=== PATIENT | female | born 1960 | race Caucasian/White ===

== ENCOUNTER 2019-02-22 17:50 | Inpatient (IN) | payer BC ==
[~2019-02-22] VITALS: Ht 162.6 cm; Wt 106.0 kg
[2019-02-22] MEDS ORDERED: DILTIAZEM HCL 25 MG/5 ML VIAL IV ONE ×3 (18:00→18:45)
[2019-02-22 18:33] LABS: Basophils # (auto) 0.1 uL; Basophils % (auto) 0.8 % (0.0-2.0); Eosinophils # (auto) 0.2 uL; Eosinophils % (auto) 2.1 % (0.0-7.0); Hematocrit 42.7 % (36.0-46.0); Hemoglobin 14.8 g/dL (12.2-16.2); Lymphocytes # (auto) 1.3 uL; Lymphocytes % (auto) 16.9 % (10.0-50.0); Mean Corpuscular Hemoglobin 31.4 pg (28.0-32.0); Mean Corpuscular Hgb Conc. 34.6 g/dL (32.0-36.0); Mean Corpuscular Volume 90.7 fL (80.0-100.0); Monocytes # (auto) 0.5 uL; Monocytes % (auto) 7.2 % (0.0-12.0); Neutrophils # (auto) 5.6 uL; Platelet Count (auto) 193 10^3/uL (140-450); Red Blood Cells 4.71 10^6/uL (4.0-5.20); Red Cell Distribution Width 12.9 % (11.8-14.3); White Blood Cell 7.7 10^3/uL (4.4-10.8)
[2019-02-22 18:47] LABS: INR < 0.93 (0.9-1.15); Partial Thromboplastin Time 25.6 sec (23.64-32.05)
[2019-02-22 18:54] LABS: Alanine Aminotransferase 44 U/L (13-56); Albumin 4.1 g/dL (3.4-5.0); Anion Gap 8 (5-15); Blood Urea Nitrogen 28 mg/dL (7-18); Calcium 8.8 mg/dL (8.5-10.1); Carbon Dioxide 23 mmol/L (21-32); Chloride 114 mmol/L (98-107); Glucose 145 mg/dL (74-106); Magnesium 2.2 mg/dL (1.6-2.6); Potassium 3.5 mmol/L (3.5-5.1); Sodium 145 mmol/L (136-145)
[2019-02-22 18:59] LABS: Alkaline Phosphatase 79 U/L (45-117); Aspartate Aminotransferase 42 U/L (15-37); BUN/Creatinine Ratio 29.8; Bilirubin, Total 0.4 mg/dL (0.2-1.0); GFR African American 79 mL/min; GFR Non-African American 65 mL/min; Total Protein 7.5 g/dL (6.4-8.2)
[2019-02-22 21:01] LABS: Urine Bacteria NONE SEEN /hpf (None Seen); Urine Blood 2+ /uL (Negative); Urine WBC 2 /hpf (0 - 5)
[2019-02-23] MEDS ORDERED: traMADol HCL 50 MG TAB PO PRN
[2019-02-23] MEDS ORDERED: ONDANSETRON HCL 4 MG/2 ML VIAL IV PRN
[2019-02-23] MEDS: TEMAZEPAM 15 MG CAP PO PRN ×2 (01:30→21:42)
--- NOTE | 2019-02-23 03:01 | NUR ---
Telemetry admit from ER CALDWELL,KAREN admitted to Telemetry unit; no SBAR received. Patient oriented by BENEDICTO DURAN, primary RN, to unit, room, bed, and unit policies regarding patient care and visiting hours. Patient now on continuous telemetry monitoring, tele box #[id number] and telemetry reading on arrival to unit is SR in 70s. Patient on room air, weighed by bedscale and encouraged to call if she needs something. All questions and concerns addressed, patient verbalized understanding. Bed in low position; HOB in semi-Schilling's. Call light to her side.
[2019-02-23 05:00] VITALS: BP 143/81
[2019-02-23] MEDS ORDERED: PROP60CA34 PO (06:03)
[2019-02-23] MEDS ORDERED: HYDR-4188 PO (06:03)
[2019-02-23] MEDS ORDERED: B-COCAP4 OR (06:03)
[2019-02-23] MEDS ORDERED: IBUP100S11 PO (06:03)
[2019-02-23] MEDS ORDERED: [UNRECOGNIZED DRUG - CODE] PO (06:03)
[2019-02-23] MEDS ORDERED: CHOL20007 PO (06:03)
[2019-02-23 07:18] LABS: Basophils # (auto) 0 uL; Basophils % (auto) 0.6 % (0.0-2.0); Eosinophils # (auto) 0.1 uL; Hematocrit 40.6 % (36.0-46.0); Hemoglobin 13.8 g/dL (12.2-16.2); Lymphocytes # (auto) 1.7 uL; Lymphocytes % (auto) 26.8 % (10.0-50.0); Mean Corpuscular Hemoglobin 31.1 pg (28.0-32.0); Mean Corpuscular Volume 91.3 fL (80.0-100.0); Monocytes # (auto) 0.6 uL; Monocytes % (auto) 8.7 % (0.0-12.0); Neutrophils # (auto) 3.9 uL; Neutrophils % (auto) 61.9 % (37.0-80.0); Nucleated Red Blood Cells % 0.1 %; Platelet Count (auto) 171 10^3/uL (140-450); Red Blood Cells 4.44 10^6/uL (4.0-5.20); White Blood Cell 6.4 10^3/uL (4.4-10.8)
[2019-02-23 07:38] LABS: BUN/Creatinine Ratio 34.4; Calcium 8.6 mg/dL (8.5-10.1); Potassium 3.4 mmol/L (3.5-5.1)
--- NOTE | 2019-02-23 08:00 | NUR ---
OPENING SHIFT NOTE ASSUMED CARE OF PATIENT. PATIENT AWAKE AND ALERT. NO SOB OR SIGNS OF DISTRESS NOTED. INSTRUCTED ON PLAN OF CARE AND TO CALL FOR ASSISTANCE. BED IN LOWEST POSITION AND SIDE RAILS UP X2. WILL CONTINUE TO MONITOR.
[2019-02-23 09:00] VITALS: BP 119/69
[2019-02-23] MEDS ORDERED: PROPRANOLOL HCL 20 MG TAB PO SCH (10:00)
[2019-02-23] MEDS: ASPirin-EC 325mg tab PO SCH (10:01)
[2019-02-23] MEDS: HYDROXYCHLOROQUINE SULFATE 200 MG TAB PO SCH (10:02)
[2019-02-23 13:00] VITALS: BP 157/87
[2019-02-23] MEDS: IBUPROFEN 600 MG TAB PO PRN (15:42)
[2019-02-23] MEDS ORDERED: POTASSIUM CHL 20 Meq TABLET PO ONE (16:30)
[2019-02-23 17:00] VITALS: BP 143/85
[2019-02-23] MEDS: RIVAROXABAN 20 MG TAB PO SCH (18:00)
[2019-02-23] MEDS ORDERED: HYDROXYCHLOROQUINE SULFATE 200 MG TAB PO SCH (18:00)
[2019-02-23 18:29] LABS: Alcohol, Urine < 3.0 mg/dL (0-5); Amphetamine Screen, Urine NEGATIVE (NEGATIVE); Barbiturate Scree,Urine NEGATIVE (NEGATIVE); Benzodiazephine Screen, Urine NEGATIVE (NEGATIVE); Cannabinoid Screen, Urine NEGATIVE (NEGATIVE); Cocaine Screen, Urine NEGATIVE (NEGATIVE); Opiate Scree,Urine NEGATIVE (NEGATIVE); Phencyclidine Screen, Urine NEGATIVE (NEGATIVE)
--- NOTE | 2019-02-23 19:30 | NUR ---
Opening Shift Note Assumed care of patient, awake and alert. No S/S of distress/SOB or pain. Instructed on POC and to call for assist PRN, will continue to monitor for changes Q1hr and PRN.
[2019-02-23 22:00] VITALS: BP 158/68
[2019-02-24 05:00] VITALS: BP 133/67
[2019-02-24 09:00] VITALS: BP_SYST 125; BP_SYST 147; BP_DIAS 58; BP_DIAS 67
[2019-02-24] MEDS: IBUPROFEN 600 MG TAB PO PRN (10:16)
[2019-02-24] MEDS: ASPirin-EC 325mg tab PO SCH (10:16)
[2019-02-24] MEDS: HYDROXYCHLOROQUINE SULFATE 200 MG TAB PO SCH (10:17)
[2019-02-24] MEDS: METOPROLOL SUCCINATE XL 50 MG TAB PO SCH (10:17)
--- NOTE | 2019-02-24 11:50 | NUR ---
AT BEDSIDE DR Bk LAM AT BEDSIDE. AWAITING ECHO RESULTS FROM CARDIOLOGY.
[2019-02-24 17:00] VITALS: BP 150/75
[2019-02-24] MEDS: RIVAROXABAN 20 MG TAB PO SCH (18:00)
--- NOTE | 2019-02-24 19:45 | NUR ---
PATIENT SITTING UP ON BED AWAKE ALERT AND ORIENTED X 4. DENIES PAIN OR DISCOMFORT AT THIS TIME. PATIENT'S FAMILY MEMBERS AT BEDSIDE. REVIEWED POC WITH PATIENT AND FAMILY. CALL LIGHT WITHIN REACH. CONTINUE PATIENT CARE.
[2019-02-24 22:00] VITALS: BP 151/87
--- NOTE | 2019-02-25 01:26 | NUR ---
PATIENT RESTING ON BED AT THIS TIME WITH NO RESPIRATORY DISTRESS NOTED. CONTINUE PATIENT CARE.
--- NOTE | 2019-02-25 07:30 | NUR ---
Opening Shift Note Assumed care of patient, awake, alert, and oriented x4. No S/S of distress/SOB or pain. IV is in right forearm 22 gauge and is asymptomatic, intact, patent, and saline locked. Bed is locked and in lowest position and call light is within reach. Instructed on POC and to call for assist PRN, and patient verbalized understanding. Will continue to monitor for changes Q1hr and PRN.
[2019-02-25 09:00] VITALS: BP 146/89
[2019-02-25] MEDS: METOPROLOL SUCCINATE XL 50 MG TAB PO SCH (09:23)
[2019-02-25] MEDS: ASPirin-EC 325mg tab PO SCH (09:24)
[2019-02-25] MEDS: HYDROXYCHLOROQUINE SULFATE 200 MG TAB PO SCH (09:26)
--- NOTE | 2019-02-25 11:00 | NUR ---
Dr. Wren, Hospitalist, at bedside. New orders received.
[2019-02-25 14:02] VITALS: BP 135/68
--- NOTE | 2019-02-25 14:26 | NUR ---
Discharge instructions given as ordered. Encourage to follow up with PMD as instructed. All questions and concerns addressed. Patient verbalized understanding. Medication reconciliation form completed and copy given to patient. IV removed with catheter intact, pressure dressing applied. Telemetry unit returned to ICU.
--- NOTE | 2019-02-25 15:01 | NUR ---
Patient walked to vehicle with all personal belongings, accompanied by family member. No distress noted at time of departure.
== END 2019-02-25 15:00 | disposition home or self-care (01) | DRG 310 ==
LOC: ER 17:50 → EDBD 17:50 → TELE 17:51 → TELE-WESTW 02-23 03:14
PROVIDERS: ADMIT Nurse Practitioner Family; ATTEND Family Medicine
DX: I48.0 Paroxysmal atrial fibrillation (principal); E87.6 Hypokalemia; I47.1 Supraventricular tachycardia; I08.0 Rheumatic disorders of both mitral and aortic valves; I48.92 Unspecified atrial flutter; F41.9 Anxiety disorder, unspecified; M32.9 Systemic lupus erythematosus, unspecified; Z82.49 Family history of ischemic heart disease and other diseases of the circulatory system; Z83.3 Family history of diabetes mellitus; Z88.5 Allergy status to narcotic agent; Z88.8 Allergy status to other drugs, medicaments and biological substances
CPT/HCPCS: 36415; 71045; 80048; 80053; 80307; 81001; 83735; 83880; 84443; 84484; 85025; 85379; 85610; 85730; 93306; 94761; 96374; 96376; G0378

== ENCOUNTER 2022-07-29 11:17 | Inpatient (IN) | payer BC ==
[~2022-07-29] VITALS: Ht 162.6 cm; Wt 106.7 kg
[~2022-07-29 11:17] MED LIST: ASPI-700 PO; B-COCAP4 OR; CHOL20007 PO; HYDR-4188 PO; IBUP100S11 PO; PROP60CA34 PO
[2022-07-29] MEDS ORDERED: HEPARIN SODIUM (PORCINE) 5000 UNITS/ML 1ML VIAL IV ONE (12:15)
[2022-07-29 13:05] LABS: Basophils # (auto) 0 10 ^3/uL (0-0.2); Basophils % (auto) 0.5 % (0.0-2.0); Eosinophils # (auto) 0.1 10 ^3/uL (0-0.8); Eosinophils % (auto) 0.8 % (0.0-7.0); Hematocrit 40.4 % (36.0-46.0); Hemoglobin 13.9 g/dL (12.2-16.2); Lymphocytes # (auto) 1.1 10 ^3/uL (0.4-5.4); Lymphocytes % (auto) 12.5 % (10.0-50.0); Mean Corpuscular Hemoglobin 31.2 pg (28.0-32.0); Mean Corpuscular Hgb Conc. 34.4 g/dL (32.0-36.0); Mean Corpuscular Volume 90.7 fL (80.0-100.0); Monocytes # (auto) 0.8 10 ^3/uL (0-1.3); Monocytes % (auto) 9.2 % (0.0-12.0); Neutrophils # (auto) 7.1 10 ^3/uL (1.6-8.6); Nucleated Red Blood Cells % 0.4 %; Red Blood Cells 4.45 10^6/uL (4.0-5.20); Red Cell Distribution Width 12.5 % (11.8-14.3); White Blood Cell 9.2 10^3/uL (4.4-10.8)
[2022-07-29 13:13] LABS: INR 1.27 (0.9-1.15); Partial Thromboplastin Time 40.6 sec (24.6-33.4)
[2022-07-29 13:15] LABS: Albumin 3.8 g/dL (3.4-5.0); Calcium 9.1 mg/dL (8.5-10.1); Potassium 3.5 mmol/L (3.5-5.1)
[2022-07-29 13:17] LABS: BUN/Creatinine Ratio 23.7
[2022-07-29 13:20] LABS: Bilirubin, Total 0.5 mg/dL (0.2-1.0); Total Protein 6.9 g/dL (6.4-8.2)
[2022-07-29] MEDS ORDERED: HEPARIN SODIUM (PORCINE) 5000 UNITS/ML 1ML VIAL ONE ×2 (13:32→13:36)
[2022-07-29 14:30] LABS: Urine Bacteria FEW /hpf (None Seen); Urine Blood Negative /uL (Negative); Urine Mucus FEW (None Seen); Urine Specific Gravity 1.024 (1.001-1.035); Urine WBC 4 /hpf (0 - 5)
[2022-07-29] MEDS ORDERED: NITROGLYCERIN 0.4 MG SL TAB SL PRN (15:15)
[2022-07-29] MEDS ORDERED: ONDANSETRON HCL 4 MG/2 ML VIAL IV PRN (15:15)
[2022-07-29] MEDS ORDERED: MORPHINE SULFATE INJ 2 MG/ml SYRG IV PRN ×2 (15:15)
[2022-07-29] MEDS ORDERED: DOCUSATE SOD 100 MG CAP PO PRN (15:15)
[2022-07-29 16:12] LABS: Magnesium 1.9 mg/dL (1.6-2.6)
[2022-07-29] MEDS: HEPARIN DRIP/D5W 100UNITS/ML 250 ML IV SCH (21:13)
[2022-07-29] MEDS: hydrOXYchloroQUINE SULFATE 200 MG TAB PO SCH (22:00)
[2022-07-29] MEDS: METOPROLOL TARTRATE 25 MG TAB PO SCH (22:00)
[2022-07-30 03:23] LABS: INR 1.07 (0.9-1.15); Partial Thromboplastin Time 32.5 sec (24.6-33.4)
[2022-07-30] MEDS ORDERED: HEPARIN SODIUM (PORCINE) 5000 UNITS/ML 1ML VIAL IV ONE ×2 (03:45→11:05)
[2022-07-30] MEDS: HEPARIN DRIP/D5W 100UNITS/ML 250 ML IV SCH (04:31)
[2022-07-30 06:21] LABS: Basophils # (auto) 0 10 ^3/uL (0-0.2); Basophils % (auto) 0.6 % (0.0-2.0); Eosinophils # (auto) 0.1 10 ^3/uL (0-0.8); Eosinophils % (auto) 1.3 % (0.0-7.0); Hematocrit 36.1 % (36.0-46.0); Hemoglobin 12.3 g/dL (12.2-16.2); Lymphocytes # (auto) 1.4 10 ^3/uL (0.4-5.4); Lymphocytes % (auto) 18.8 % (10.0-50.0); Mean Corpuscular Hgb Conc. 34.1 g/dL (32.0-36.0); Mean Corpuscular Volume 91.1 fL (80.0-100.0); Monocytes # (auto) 0.8 10 ^3/uL (0-1.3); Monocytes % (auto) 10.9 % (0.0-12.0); Neutrophils % (auto) 68.4 % (37.0-80.0); Nucleated Red Blood Cells % 0.3 %; Red Blood Cells 3.97 10^6/uL (4.0-5.20); Red Cell Distribution Width 12.5 % (11.8-14.3); White Blood Cell 7.3 10^3/uL (4.4-10.8)
[2022-07-30 06:52] LABS: Calcium 8.9 mg/dL (8.5-10.1); Potassium 3.5 mmol/L (3.5-5.1)
[2022-07-30 06:58] LABS: Albumin 3.5 g/dL (3.4-5.0); Bilirubin, Total 1.1 mg/dL (0.2-1.0); Total Protein 6.6 g/dL (6.4-8.2)
[2022-07-30 09:13] LABS: INR 1.03 (0.9-1.15); Partial Thromboplastin Time 32.5 sec (24.6-33.4)
[2022-07-30] MEDS: amLODIPine BESYLATE 5 MG TAB PO SCH (10:28)
[2022-07-30] MEDS: hydrOXYchloroQUINE SULFATE 200 MG TAB PO SCH ×2 (10:29→22:00)
[2022-07-30] MEDS: METOPROLOL TARTRATE 25 MG TAB PO SCH ×2 (10:29→22:00)
[2022-07-30] MEDS: PANTOPRAZOLE 40 MG/10 ML VIAL INJ IV SCH (10:31)
[2022-07-30] MEDS: CHOLECALCIFEROL (VITD3) 2,000 UNIT CAP/TAB PO SCH (10:34)
[2022-07-30] MEDS: ASPirin 325 MG TAB PO SCH (10:34)
[2022-07-30 10:38] LABS: INR 1.03 (0.9-1.15); Partial Thromboplastin Time 32.8 sec (24.6-33.4)
[2022-07-30] MEDS ORDERED: HEPARIN DRIP/D5W 100UNITS/ML 250 ML IV SCH ×2 (11:00→19:45)
[2022-07-30 17:00] VITALS: BP 132/51
[2022-07-30] MEDS ORDERED: RIV20T PO (17:32)
[2022-07-30] MEDS ORDERED: METO25TA93 PO (17:32)
[2022-07-30] MEDS ORDERED: AMLO-489 PO (17:32)
[2022-07-30 18:24] LABS: INR 1.06 (0.9-1.15)
[2022-07-30 18:36] LABS: Partial Thromboplastin Time > 139.0 sec (24.6-33.4)
[2022-07-30] MEDS: ACETAMINOPHEN 325 MG TAB PO PRN (20:50)
[2022-07-30] MEDS: TEMAZEPAM 15 MG CAP PO PRN (20:57)
[2022-07-30 22:00] VITALS: BP 120/58
[2022-07-31 03:16] LABS: INR 1.04 (0.9-1.15)
[2022-07-31 03:18] LABS: Partial Thromboplastin Time > 139.0 sec (24.6-33.4)
[2022-07-31 05:00] VITALS: BP 116/49
[2022-07-31 08:56] VITALS: BP 125/43
[2022-07-31] MEDS: PANTOPRAZOLE 40 MG/10 ML VIAL INJ IV SCH (10:03)
[2022-07-31] MEDS: ASPirin 325 MG TAB PO SCH (10:04)
[2022-07-31] MEDS: ACETAMINOPHEN 325 MG TAB PO PRN ×3 (10:05→22:50)
[2022-07-31] MEDS: hydrOXYchloroQUINE SULFATE 200 MG TAB PO SCH (10:05)
[2022-07-31] MEDS: CHOLECALCIFEROL (VITD3) 2,000 UNIT CAP/TAB PO SCH (10:05)
[2022-07-31] MEDS: amLODIPine BESYLATE 5 MG TAB PO SCH (10:06)
[2022-07-31] MEDS: METOPROLOL TARTRATE 25 MG TAB PO SCH (10:07)
[2022-07-31] MEDS ORDERED: GADOTERATE MEG 10 MMOL/20ml INJ (0.5MMOL/ml) IV ONE (11:45)
[2022-07-31 12:30] LABS: INR 1.03 (0.9-1.15)
[2022-07-31 13:00] VITALS: BP 107/43
[2022-07-31 13:03] LABS: Partial Thromboplastin Time 113.5 sec (24.6-33.4)
[2022-07-31 17:00] VITALS: BP 102/45
[2022-07-31 21:18] LABS: INR 1.03 (0.9-1.15); Partial Thromboplastin Time 65.1 sec (24.6-33.4)
[2022-07-31 22:00] VITALS: BP 117/59
[2022-07-31] MEDS: TEMAZEPAM 15 MG CAP PO PRN (22:50)
[2022-08-01 02:45] LABS: INR 1.02 (0.9-1.15); Partial Thromboplastin Time 60.6 sec (24.6-33.4)
[2022-08-01] MEDS: HEPARIN DRIP/D5W 100UNITS/ML 250 ML IV SCH ×3 (03:53→20:13)
[2022-08-01 05:00] VITALS: BP 106/49
[2022-08-01 09:09] LABS: Partial Thromboplastin Time 56.4 sec (24.6-33.4)
[2022-08-01] MEDS: ASPirin 325 MG TAB PO SCH (09:23)
[2022-08-01] MEDS: CHOLECALCIFEROL (VITD3) 2,000 UNIT CAP/TAB PO SCH (09:23)
[2022-08-01] MEDS: hydrOXYchloroQUINE SULFATE 200 MG TAB PO SCH (09:26)
[2022-08-01] MEDS: amLODIPine BESYLATE 5 MG TAB PO SCH (09:27)
[2022-08-01] MEDS: METOPROLOL TARTRATE 25 MG TAB PO SCH (09:27)
[2022-08-01] MEDS: PANTOPRAZOLE 40 MG/10 ML VIAL INJ IV SCH (09:28)
[2022-08-01] MEDS: ACETAMINOPHEN 325 MG TAB PO PRN ×2 (09:31→15:15)
[2022-08-01 09:47] VITALS: BP 133/52
[2022-08-01 09:48] VITALS: BP 133/52
[2022-08-01 13:02] VITALS: BP 116/47
[2022-08-01] MEDS ORDERED: ACETAMINOPHEN 325 MG TAB PO PRN ×2 (15:00→15:15)
[2022-08-01 17:08] VITALS: BP 126/57
[2022-08-01 22:00] VITALS: BP 132/51
[2022-08-01] MEDS: TEMAZEPAM 15 MG CAP PO PRN (23:14)
[2022-08-02 05:00] VITALS: BP 110/52
[2022-08-02 06:54] LABS: Partial Thromboplastin Time 48.7 sec (24.6-33.4)
[2022-08-02] MEDS: HEPARIN DRIP/D5W 100UNITS/ML 250 ML IV SCH (07:02)
[2022-08-02 09:00] VITALS: BP 131/53
[2022-08-02 09:04] VITALS: BP 130/61
[2022-08-02] MEDS: PANTOPRAZOLE 40 MG/10 ML VIAL INJ IV SCH (09:07)
[2022-08-02] MEDS: CHOLECALCIFEROL (VITD3) 2,000 UNIT CAP/TAB PO SCH (09:08)
[2022-08-02] MEDS: hydrOXYchloroQUINE SULFATE 200 MG TAB PO SCH (09:08)
[2022-08-02] MEDS: METOPROLOL TARTRATE 25 MG TAB PO SCH (09:09)
[2022-08-02] MEDS: amLODIPine BESYLATE 5 MG TAB PO SCH (09:10)
[2022-08-02] MEDS: ASPirin 325 MG TAB PO SCH (09:10)
[2022-08-02] MEDS ORDERED: ENOXAPARIN SOD 120 MG/0.8 ML SYRINGE SC SCH (10:00)
[2022-08-02] MEDS: ENOXAPARIN SOD 120 MG/0.8 ML SYRINGE SC SCH ×2 (11:01→22:00)
[2022-08-02 13:00] VITALS: BP 121/49
[2022-08-02 17:00] VITALS: BP 121/57
[2022-08-02] MEDS ORDERED: WARFARIN SODIUM 10 MG TAB PO ONE (17:00)
[2022-08-02] MEDS: ACETAMINOPHEN 325 MG TAB PO PRN (18:59)
[2022-08-02 22:00] VITALS: BP 123/50
[2022-08-02] MEDS: TEMAZEPAM 15 MG CAP PO PRN (22:25)
[2022-08-03 05:00] VITALS: BP 123/58
[2022-08-03 08:15] VITALS: BP 141/52
[2022-08-03 09:00] VITALS: BP 141/52
[2022-08-03] MEDS: CHOLECALCIFEROL (VITD3) 2,000 UNIT CAP/TAB PO SCH (09:51)
[2022-08-03] MEDS: ASPirin 325 MG TAB PO SCH (09:52)
[2022-08-03] MEDS: amLODIPine BESYLATE 5 MG TAB PO SCH (09:52)
[2022-08-03] MEDS: hydrOXYchloroQUINE SULFATE 200 MG TAB PO SCH (09:53)
[2022-08-03] MEDS: METOPROLOL TARTRATE 25 MG TAB PO SCH (09:54)
[2022-08-03] MEDS: PANTOPRAZOLE 40 MG/10 ML VIAL INJ IV SCH (09:55)
[2022-08-03] MEDS: ENOXAPARIN SOD 120 MG/0.8 ML SYRINGE SC SCH ×2 (09:55→22:27)
[2022-08-03 10:46] LABS: INR 1.01 (0.9-1.15); Partial Thromboplastin Time 29.9 sec (24.6-33.4)
[2022-08-03 13:00] VITALS: BP 117/53
[2022-08-03 17:00] VITALS: BP 120/60
[2022-08-03] MEDS ORDERED: WARFARIN SODIUM 10 MG TAB PO ONE (17:00)
[2022-08-03 22:00] VITALS: BP 123/53
[2022-08-03] MEDS: TEMAZEPAM 15 MG CAP PO PRN (22:27)
[2022-08-03] MEDS: ACETAMINOPHEN 325 MG TAB PO PRN (22:27)
[2022-08-04] VITALS (7 sets, daily range): BP systolic 107–129; BP diastolic 43–55
[2022-08-04 08:12] LABS: Basophils # (auto) 0.1 10 ^3/uL (0-0.2); Basophils % (auto) 0.9 % (0.0-2.0); Eosinophils # (auto) 0.2 10 ^3/uL (0-0.8); Eosinophils % (auto) 3.6 % (0.0-7.0); Hematocrit 34.5 % (36.0-46.0); Hemoglobin 11.8 g/dL (12.2-16.2); Mean Corpuscular Hgb Conc. 34.1 g/dL (32.0-36.0); Mean Corpuscular Volume 90.8 fL (80.0-100.0); Monocytes # (auto) 0.6 10 ^3/uL (0-1.3); Monocytes % (auto) 9.5 % (0.0-12.0); Neutrophils # (auto) 3.9 10 ^3/uL (1.6-8.6); Nucleated Red Blood Cells % 0.1 %; Red Cell Distribution Width 12.3 % (11.8-14.3); White Blood Cell 5.8 10^3/uL (4.4-10.8)
[2022-08-04 08:27] LABS: INR 1.05 (0.9-1.15); Partial Thromboplastin Time 33.7 sec (24.6-33.4)
[2022-08-04] MEDS: amLODIPine BESYLATE 5 MG TAB PO SCH (10:14)
[2022-08-04] MEDS: ASPirin 325 MG TAB PO SCH (10:14)
[2022-08-04] MEDS: CHOLECALCIFEROL (VITD3) 2,000 UNIT CAP/TAB PO SCH (10:14)
[2022-08-04] MEDS: ENOXAPARIN SOD 120 MG/0.8 ML SYRINGE SC SCH ×2 (10:14→21:12)
[2022-08-04] MEDS: METOPROLOL TARTRATE 25 MG TAB PO SCH (10:15)
[2022-08-04] MEDS: hydrOXYchloroQUINE SULFATE 200 MG TAB PO SCH (10:16)
[2022-08-04] MEDS: PANTOPRAZOLE 40 MG/10 ML VIAL INJ IV SCH (10:21)
[2022-08-04] MEDS ORDERED: WARFARIN SODIUM 10 MG TAB PO ONE (17:00)
[2022-08-04] MEDS: TEMAZEPAM 15 MG CAP PO PRN (21:12)
[2022-08-04] MEDS: ACETAMINOPHEN 325 MG TAB PO PRN (21:13)
[2022-08-05 05:00] VITALS: BP 118/47
[2022-08-05 06:17] LABS: INR 1.2 (0.9-1.15)
[2022-08-05] MEDS: CHOLECALCIFEROL (VITD3) 2,000 UNIT CAP/TAB PO SCH (09:20)
[2022-08-05] MEDS: amLODIPine BESYLATE 5 MG TAB PO SCH (09:25)
[2022-08-05] MEDS: hydrOXYchloroQUINE SULFATE 200 MG TAB PO SCH (09:25)
[2022-08-05] MEDS: ASPirin 325 MG TAB PO SCH (09:25)
[2022-08-05] MEDS: ENOXAPARIN SOD 120 MG/0.8 ML SYRINGE SC SCH ×2 (09:25→21:36)
[2022-08-05] MEDS: METOPROLOL TARTRATE 25 MG TAB PO SCH (09:27)
[2022-08-05] MEDS: PANTOPRAZOLE 40 MG/10 ML VIAL INJ IV SCH (09:28)
[2022-08-05] MEDS: ACETAMINOPHEN 325 MG TAB PO PRN ×2 (11:30→21:32)
[2022-08-05 13:00] VITALS: BP 110/51
[2022-08-05] MEDS ORDERED: WARFARIN SODIUM 10 MG TAB PO ONE (17:00)
[2022-08-05 17:12] VITALS: BP 123/59
[2022-08-05] MEDS: TEMAZEPAM 15 MG CAP PO PRN (21:36)
[2022-08-05 22:00] VITALS: BP 133/53
[2022-08-06 05:00] VITALS: BP 107/57
[2022-08-06 06:25] LABS: INR 1.34 (0.9-1.15)
[2022-08-06 09:00] VITALS: BP 137/64
[2022-08-06] MEDS: PANTOPRAZOLE 40 MG/10 ML VIAL INJ IV SCH (10:23)
[2022-08-06] MEDS: ENOXAPARIN SOD 120 MG/0.8 ML SYRINGE SC SCH ×2 (10:23→22:12)
[2022-08-06] MEDS: ASPirin 325 MG TAB PO SCH (10:23)
[2022-08-06] MEDS: CHOLECALCIFEROL (VITD3) 2,000 UNIT CAP/TAB PO SCH (10:23)
[2022-08-06] MEDS: hydrOXYchloroQUINE SULFATE 200 MG TAB PO SCH (10:24)
[2022-08-06] MEDS: METOPROLOL TARTRATE 25 MG TAB PO SCH (10:24)
[2022-08-06] MEDS: amLODIPine BESYLATE 5 MG TAB PO SCH (10:25)
[2022-08-06 13:00] VITALS: BP 162/69
[2022-08-06] MEDS ORDERED: LORazepam 2MG/ML-1ML VIAL IV PRN (13:15)
[2022-08-06 17:00] VITALS: BP 135/47
[2022-08-06] MEDS ORDERED: WARFARIN SODIUM 10 MG TAB PO ONE (17:00)
[2022-08-06 20:00] VITALS: BP 135/53
[2022-08-06 22:00] VITALS: BP 135/47
[2022-08-06] MEDS: TEMAZEPAM 15 MG CAP PO PRN (22:51)
[2022-08-06] MEDS: ACETAMINOPHEN 325 MG TAB PO PRN (22:51)
[2022-08-07] VITALS (7 sets, daily range): BP systolic 108–141; BP diastolic 49–65
[2022-08-07 06:01] LABS: INR 1.6 (0.9-1.15)
[2022-08-07] MEDS: ENOXAPARIN SOD 120 MG/0.8 ML SYRINGE SC SCH ×2 (09:51→21:14)
[2022-08-07] MEDS: CHOLECALCIFEROL (VITD3) 2,000 UNIT CAP/TAB PO SCH (09:51)
[2022-08-07] MEDS: PANTOPRAZOLE 40 MG/10 ML VIAL INJ IV SCH (09:51)
[2022-08-07] MEDS: ASPirin 325 MG TAB PO SCH (09:51)
[2022-08-07] MEDS: hydrOXYchloroQUINE SULFATE 200 MG TAB PO SCH (09:52)
[2022-08-07] MEDS: amLODIPine BESYLATE 5 MG TAB PO SCH (09:52)
[2022-08-07] MEDS: METOPROLOL TARTRATE 25 MG TAB PO SCH (09:52)
[2022-08-07] MEDS ORDERED: WARFARIN SODIUM 10 MG TAB PO ONE (17:00)
[2022-08-07] MEDS: ACETAMINOPHEN 325 MG TAB PO PRN (18:02)
[2022-08-07] MEDS: TEMAZEPAM 15 MG CAP PO PRN (22:30)
[2022-08-08] VITALS (7 sets, daily range): BP systolic 108–138; BP diastolic 48–65
[2022-08-08 06:20] LABS: Basophils # (auto) 0 10 ^3/uL (0-0.2); Basophils % (auto) 0.7 % (0.0-2.0); Eosinophils # (auto) 0.2 10 ^3/uL (0-0.8); Eosinophils % (auto) 3.9 % (0.0-7.0); Hematocrit 34.4 % (36.0-46.0); Hemoglobin 11.5 g/dL (12.2-16.2); Lymphocytes # (auto) 1.3 10 ^3/uL (0.4-5.4); Lymphocytes % (auto) 22.2 % (10.0-50.0); Mean Corpuscular Hemoglobin 30.3 pg (28.0-32.0); Mean Corpuscular Hgb Conc. 33.4 g/dL (32.0-36.0); Mean Corpuscular Volume 90.8 fL (80.0-100.0); Monocytes # (auto) 0.5 10 ^3/uL (0-1.3); Monocytes % (auto) 8.2 % (0.0-12.0); Neutrophils # (auto) 3.7 10 ^3/uL (1.6-8.6); Red Blood Cells 3.78 10^6/uL (4.0-5.20); Red Cell Distribution Width 12.2 % (11.8-14.3); White Blood Cell 5.7 10^3/uL (4.4-10.8)
[2022-08-08 07:25] LABS: INR 1.85 (0.9-1.15)
[2022-08-08] MEDS: hydrOXYchloroQUINE SULFATE 200 MG TAB PO SCH (12:08)
[2022-08-08] MEDS: PANTOPRAZOLE 40 MG/10 ML VIAL INJ IV SCH (12:08)
[2022-08-08] MEDS: ENOXAPARIN SOD 120 MG/0.8 ML SYRINGE SC SCH ×2 (12:08→21:40)
[2022-08-08] MEDS: CHOLECALCIFEROL (VITD3) 2,000 UNIT CAP/TAB PO SCH (12:08)
[2022-08-08] MEDS: METOPROLOL TARTRATE 25 MG TAB PO SCH (12:09)
[2022-08-08] MEDS: ASPirin 325 MG TAB PO SCH (12:09)
[2022-08-08] MEDS: amLODIPine BESYLATE 5 MG TAB PO SCH (12:11)
[2022-08-08] MEDS ORDERED: WARFARIN SODIUM 10 MG TAB PO ONE (17:00)
[2022-08-08] MEDS: ACETAMINOPHEN 325 MG TAB PO PRN (21:40)
[2022-08-09 05:00] VITALS: BP 121/73
[2022-08-09 05:38] LABS: INR 1.89 (0.9-1.15); Partial Thromboplastin Time 42.7 sec (24.6-33.4)
[2022-08-09 09:10] VITALS: BP 147/59
[2022-08-09] MEDS: PANTOPRAZOLE 40 MG/10 ML VIAL INJ IV SCH (09:18)
[2022-08-09] MEDS: hydrOXYchloroQUINE SULFATE 200 MG TAB PO SCH (09:19)
[2022-08-09] MEDS: ASPirin 325 MG TAB PO SCH (09:20)
[2022-08-09] MEDS: METOPROLOL TARTRATE 25 MG TAB PO SCH (09:20)
[2022-08-09] MEDS: amLODIPine BESYLATE 5 MG TAB PO SCH (09:21)
[2022-08-09] MEDS: CHOLECALCIFEROL (VITD3) 2,000 UNIT CAP/TAB PO SCH (09:22)
[2022-08-09] MEDS: ENOXAPARIN SOD 120 MG/0.8 ML SYRINGE SC SCH ×2 (09:23→21:51)
[2022-08-09 13:00] VITALS: BP 119/56
[2022-08-09 16:51] VITALS: BP 123/54
[2022-08-09] MEDS ORDERED: WARFARIN SODIUM 10 MG TAB PO ONE (17:00)
[2022-08-09 20:00] VITALS: BP 127/60
[2022-08-09 21:41] VITALS: BP 127/60
[2022-08-09] MEDS: ACETAMINOPHEN 325 MG TAB PO PRN (21:50)
[2022-08-09] MEDS: TEMAZEPAM 15 MG CAP PO PRN (21:50)
[2022-08-10] VITALS (7 sets, daily range): BP systolic 111–134; BP diastolic 52–69
[2022-08-10 06:09] LABS: INR 2.13 (0.9-1.15); Partial Thromboplastin Time 43.2 sec (24.6-33.4)
[2022-08-10] MEDS: METOPROLOL TARTRATE 25 MG TAB PO SCH (09:06)
[2022-08-10] MEDS: PANTOPRAZOLE 40 MG TAB PO SCH (09:07)
[2022-08-10] MEDS: amLODIPine BESYLATE 5 MG TAB PO SCH (09:07)
[2022-08-10] MEDS: hydrOXYchloroQUINE SULFATE 200 MG TAB PO SCH (09:07)
[2022-08-10] MEDS: ENOXAPARIN SOD 120 MG/0.8 ML SYRINGE SC SCH (09:08)
[2022-08-10] MEDS: CHOLECALCIFEROL (VITD3) 2,000 UNIT CAP/TAB PO SCH (09:08)
[2022-08-10] MEDS ORDERED: WARFARIN SODIUM 10 MG TAB PO ONE (17:00)
[2022-08-10] MEDS: TEMAZEPAM 15 MG CAP PO PRN (21:09)
[2022-08-10] MEDS: ACETAMINOPHEN 325 MG TAB PO PRN (21:09)
[2022-08-11 05:00] VITALS: BP 116/50
[2022-08-11 06:05] LABS: INR 2.22 (0.9-1.15); Partial Thromboplastin Time 39.9 sec (24.6-33.4)
[2022-08-11 08:10] VITALS: BP 148/75
[2022-08-11 09:00] VITALS: BP 148/75
[2022-08-11] MEDS: CHOLECALCIFEROL (VITD3) 2,000 UNIT CAP/TAB PO SCH (09:47)
[2022-08-11] MEDS: amLODIPine BESYLATE 5 MG TAB PO SCH (09:47)
[2022-08-11] MEDS: PANTOPRAZOLE 40 MG TAB PO SCH (09:47)
[2022-08-11] MEDS: METOPROLOL TARTRATE 25 MG TAB PO SCH (09:48)
[2022-08-11] MEDS: hydrOXYchloroQUINE SULFATE 200 MG TAB PO SCH (09:48)
[2022-08-11 13:00] VITALS: BP 134/68
[2022-08-11] MEDS ORDERED: WARF10TA20 PO (14:00)
[2022-08-11 14:50] VITALS: BP 134/66
[2022-08-11] MEDS ORDERED: WARFARIN SODIUM 10 MG TAB PO ONE (17:00)
== END 2022-08-11 15:48 | disposition home or self-care (01) | DRG 300 ==
LOC: ER 11:17 → TELE 15:15 → TELE-CENTR 07-30 16:22
PROVIDERS: ADMIT Nurse Practitioner Family; ATTEND Internal Medicine
DX: I82.431 Acute embolism and thrombosis of right popliteal vein (principal); I48.92 Unspecified atrial flutter; Z68.41 Body mass index [BMI] 40.0-44.9, adult; I10 Essential (primary) hypertension; I48.91 Unspecified atrial fibrillation; M17.10 Unilateral primary osteoarthritis, unspecified knee; M66.0 Rupture of popliteal cyst; S83.206A Unspecified tear of unspecified meniscus, current injury, right knee, initial encounter; F41.9 Anxiety disorder, unspecified; E66.01 Morbid (severe) obesity due to excess calories; Z20.822 Contact with and (suspected) exposure to COVID-19; X58.XXXA Exposure to other specified factors, initial encounter; Z88.6 Allergy status to analgesic agent; Z88.5 Allergy status to narcotic agent; Z88.8 Allergy status to other drugs, medicaments and biological substances; Z79.899 Other long term (current) drug therapy; Z79.82 Long term (current) use of aspirin; Z82.3 Family history of stroke; Z83.3 Family history of diabetes mellitus; Y93.89 Activity, other specified; Y92.89 Other specified places as the place of occurrence of the external cause; Y99.8 Other external cause status
CPT/HCPCS: 36415; 71045; 73719; 80053; 81001; 82565; 83735; 84100; 84443; 84484; 85025; 85049; 85610; 85730; 87426; 93306; 93971; 96374; 97110; 97116; 97163; 97530; C9113; G0378

== ENCOUNTER → 2023-04-10 | Outpatient (CLI) | payer BC ==
[~2023-04-10] MED LIST changes: +AMLO1TAB22 PO; +METO25TA93 PO; +RIV20T PO; +WARF-115 PO
[2023-04-10 14:32] LABS: INR 2.28 (0.9-1.15); Prothrombin Time 22.7 sec (9.3-11.8)
== END | disposition home or self-care (01) ==
LOC: LAB 14:05
PROVIDERS: ATTEND Physician Assistant
DX: I82.409 Acute embolism and thrombosis of unspecified deep veins of unspecified lower extremity (principal); D68.61 Antiphospholipid syndrome; Z79.01 Long term (current) use of anticoagulants
CPT/HCPCS: 36415; 85610